=== PATIENT | male | born 1970 | race Caucasian/White ===

== ENCOUNTER 2021-07-04 18:34 | Emergency (ER) | payer MEDICARE, OTHER ==
[2021-07-04 19:25] LABS: HEMOGLOBIN 14.8 gm/dl (14.0-17.5); RED BLOOD COUNT 4.79 M/UL (4.20-5.50); WHITE BLOOD COUNT 13.4 K/UL (4.5-11.0)
[2021-07-04 19:55] LABS: BUN/CREATININE RATIO 16 (0-10)
[2021-07-04] MEDS ORDERED: VALACYCLOVIR1000 MG PO (23:34)
== END 2021-07-04 23:55 | disposition home or self-care (01) ==
LOC: ER1 18:34
PROVIDERS: Physician Assistant
DX: R55 Syncope and collapse (principal); B02.9 Zoster without complications; F17.210 Nicotine dependence, cigarettes, uncomplicated
CPT/HCPCS: 80053; 82550; 82553; 84484; 85025; 93005; 99284